=== PATIENT | female | born 1970 | race Caucasian/White ===

== ENCOUNTER → 2018-06-06 | Outpatient (CLI) | payer MEDICARE, MEDICAID ==
--- NOTE | 2018-06-06 14:43 | PFTRPT ---
Height: 63.50 Inches Weight: 216.00 Lbs BSA: 2.01 Diagnosis: J45.40 ATE OF PROCEDURE: 06/06/2018 ORDERED BY: Dr. Susan Nova Spirometry: Study of excellent technical quality. Forced vital capacity normal. FEV1 in proportion. Obstructive index is, therefore, normal. Flow Volume Loop: Expiratory limb of the flow volume loop is normal. No significant bronchodilator response is identified. Lung Volumes: Total lung capacity mildly elevated. Residual volume borderline for air trapping. Diffusing Capacity: Diffusing capacity normal. Hemoglobin: Hemoglobin acceptable at 13.9. Airway Mechanics: Airway resistance and conductance are normal. IMPRESSION: Cannot rule out a degree of air trapping. Please correlate clinically. MTDD
== END ==
LOC: M CARPUL 11:31
PROVIDERS: ATTEND Internal Medicine Pulmonary Disease
DX: J45.40 Moderate persistent asthma, uncomplicated (principal)

== ENCOUNTER → 2018-06-06 | Outpatient (REF) | payer MEDICARE, MEDICAID ==
[2018-06-06 18:22] LABS: BASO # 0.1 10^3/uL (0.0-0.2); BASO % 0.4 % (0.0-1.0); EOS # 0.1 10^3/uL (0.0-0.50); EOS % 0.6 % (0.0-3.0); HEMATOCRIT 42.4 % (36.0-47.0); HEMOGLOBIN 14.2 g/dl (12.0-15.5); LYMPH # 1.8 10^3/uL (1.5-4.5); LYMPH % 15.9 % (24.0-44.0); MEAN CORPUSCULAR HGB CONC 33.5 g/dl (32.0-36.5); MEAN CORPUSCULAR VOLUME 86.7 fl (80.0-96.0); MONO # 0.6 10^3/uL (0.0-0.8); MONO % 4.7 % (0.0-5.0); NEUTROPHILS % 77.8 % (36.0-66.0); PLATELET COUNT, AUTOMATED 363 10^3/uL (150-450); RED BLOOD COUNT 4.89 10^6/uL (4.00-5.40); WHITE BLOOD COUNT 11.6 10^3/uL (4.0-10.0)
[2018-06-06 18:40] LABS: FREE T4 1.07 NG/DL (0.76-1.46); IMMUNOGLOBULIN E 18.3 IU/ML (<100); THYROID STIMULATING HORMONE 1.79 uIU/ML (0.358-3.740)
[2018-06-10 14:49] LABS: D001-IgE D pteronyssinus <0.10 kU/L (Class 0); E001-IgE Cat Epith/Dander < 0.10 kU/L (Class 0); E005-IgE Dog Dander < 0.10 kU/L (Class 0); G002-IgE Bermuda Grass < 0.10 kU/L (Class 0); G008-IgE Kentucky Bluegrass < 0.10 kU/L (Class 0); M001-IgE Penicillium chrysogen < 0.10 kU/L (Class 0); M002 IgE Cladosporium herbaru < 0.10 kU/L (Class 0); M003 IgE Aspergillus fumigatu < 0.10 kU/L (Class 0); M006-IgE Alternaria alternata < 0.10 kU/L (Class 0); T001-IgE Maple/Box Elder < 0.10 kU/L (Class 0); T003-IgE Common Silver Birch < 0.10 kU/L (Class 0); T006-IgE Cedar, Mountain < 0.10 kU/L (Class 0); T007-IgE Oak, White < 0.10 kU/L (Class 0); T008-IgE Elm, American < 0.10 kU/L (Class 0); T015-IgE Ash, White < 0.10 kU/L (Class 0); T041-IgE Hickory, White < 0.10 kU/L (Class 0); T070-IgE White Mulberry < 0.10 kU/L (Class 0); W001-IgE Ragweed, Short < 0.10 kU/L (Class 0); W009-IgE Plantain, English < 0.10 kU/L (Class 0); W014-IgE Pigweed, Rough < 0.10 kU/L (Class 0); W018-IgE Sheep Sorrel < 0.10 kU/L (Class 0)
== END ==
LOC: M LAB REF 17:13
PROVIDERS: ATTEND Internal Medicine Pulmonary Disease
DX: J45.40 Moderate persistent asthma, uncomplicated (principal)

== ENCOUNTER 2021-07-28 11:07 | Day surgery (SDC) | payer MEDICARE, MEDICAID ==
[~2021-07-28] VITALS: Ht 160 cm; Wt 87.1 kg
[~2021-07-28 11:07] MED LIST: ACETAMINOPHEN 1000MG 100ML IV BTL (OFIRMEV) (J0131 PER 10MG) As Ordered ONE; ADDE20CA3 PO; ADV500INH; AMLO1TAB24; ARNU1INH3; ATIV1TAB10; DULO1CAP6; EPINEPHrine 1MG/ML INJ 30ML MD-VIAL As Ordered ONE; FAMO1TAB11; GABA600T4; HYDR-3490; LAMO100T3; LATU80TA2; LEVO137T2; LIDOCAINE 2% 100MG/5ML SDV (FOR ANES.) As Ordered ONE; LIDOCAINE W/EPINEPHRINE 1% 20ML VIAL As Ordered ONE; LR 1,000 ML IV ONE; METHYLENE BLUE 0.5% (5MG/ML) 10 ML AMP (PROVAYBLUE) As Ordered ONE; MIDAZOLAM INJ 2MG/2ML VIAL (J2250 PER 1MG) As Ordered ONE; MONT10TA97; ONDANSETRON 4MG/2ML VIAL As Ordered ONE; PRAV40TA2; PRAZ1CAP; REST0.05; ROCURONIUM BROMIDE 50 MG/5 ML VIAL As Ordered ONE; SPIR12.9; SUGAMMADEX SODIUM 500 MG/5 ML VIAL (BRIDION) As Ordered ONE; TOPI25TA10; VITA1CAP25; dexameTHASONE 4 MG/ML 1ML VIAL (J1100 PER 1MG) As Ordered ONE; fentaNYL 100 MCG/2 ML INJECTION As Ordered ONE; propofoL 200 MG/20 ML VIAL As Ordered ONE
[2021-07-28] MEDS ORDERED: ACETAMINOPH W/CODEINE #3 TAB UD PO PRN (12:50)
[2021-07-28] MEDS ORDERED: LR 1,000 ML IV SCH ×2 (13:00→13:25)
[2021-07-28] MEDS ORDERED: METOCLOPRAMIDE INJ 10MG/2ML VIAL (J2765 PER 1) IV PRN (13:25)
[2021-07-28] MEDS ORDERED: oxyCODONE 5MG TAB PO PRN (13:25)
[2021-07-28] MEDS ORDERED: fentaNYL 100 MCG/2 ML INJECTION IV PRN (13:25)
[2021-07-28] MEDS ORDERED: ONDANSETRON 4MG/2ML VIAL IV PRN (13:25)
[2021-07-28] MEDS ORDERED: HYDROMORPHONE HCL 0.5 MG/ 0.5 ML SYRINGE (J1170 PER 1) IV PRN (13:25)
[2021-07-28] MEDS ORDERED: ALBUTEROL SULFATE 2.5 MG/0.5 ML INH NEB SOLN INH ONE (13:50)
[2021-07-28 15:07] VITALS: BP 125/87
== END 2021-07-28 15:07 | disposition home or self-care (01) ==
LOC: M SDC 11:07
PROVIDERS: ATTEND Otolaryngology
DX: J34.2 Deviated nasal septum (principal); J31.0 Chronic rhinitis; J45.909 Unspecified asthma, uncomplicated; G47.33 Obstructive sleep apnea (adult) (pediatric); E03.9 Hypothyroidism, unspecified; F43.10 Post-traumatic stress disorder, unspecified; F31.81 Bipolar II disorder; F41.0 Panic disorder [episodic paroxysmal anxiety]; L40.50 Arthropathic psoriasis, unspecified; E78.5 Hyperlipidemia, unspecified; M79.7 Fibromyalgia; K22.719 Barrett's esophagus with dysplasia, unspecified; K58.0 Irritable bowel syndrome with diarrhea; F60.9 Personality disorder, unspecified; Z87.891 Personal history of nicotine dependence; Z88.0 Allergy status to penicillin; Z91.030 Bee allergy status; Z79.899 Other long term (current) drug therapy; Z79.51 Long term (current) use of inhaled steroids
CPT/HCPCS: 30130; 30520; 87428; 88300; J0131; J0171; J1100; J2250; J2405; J3010; Q9968

== ENCOUNTER 2022-04-27 06:38 | Day surgery (SDC) | payer MEDICARE, MEDICAID ==
[~2022-04-27] VITALS: Ht 160 cm; Wt 88.0 kg
[~2022-04-27 06:38] MED LIST changes: -ACETAMINOPHEN 1000MG 100ML IV BTL (OFIRMEV) (J0131 PER 10MG) As Ordered ONE; -AMLO1TAB24; +AMLO1TAB24 PO; -ATIV1TAB10; +ATIV1TAB10 PO; +BRIN10TA4 PO; +CLAR10CA3 PO; +D3-5CAP PO; +DICY20TA20 PO; -EPINEPHrine 1MG/ML INJ 30ML MD-VIAL As Ordered ONE; -FAMO1TAB11; +FAMO1TAB11 PO; +FLUT1BLS8 INH; +GABA-282 PO; +LAMO100T3 PO; +LAMO25TA57 PO; +LATU120T PO; -LEVO137T2; +LEVO137T2 PO; -LIDOCAINE 2% 100MG/5ML SDV (FOR ANES.) As Ordered ONE; -LIDOCAINE W/EPINEPHRINE 1% 20ML VIAL As Ordered ONE; -LR 1,000 ML IV ONE; +MAGN400T33 PO; -METHYLENE BLUE 0.5% (5MG/ML) 10 ML AMP (PROVAYBLUE) As Ordered ONE; -MIDAZOLAM INJ 2MG/2ML VIAL (J2250 PER 1MG) As Ordered ONE; -MONT10TA97; +MONT10TA97 PO; +OMEP40CA5 PO; -ONDANSETRON 4MG/2ML VIAL As Ordered ONE; +OXYB10TA23 PO; +POTA10CA33 PO; -PRAV40TA2; +PRAV40TA2 PO; -PRAZ1CAP; +PRAZ1CAP PO; +QUET50TA4 PO; -REST0.05; +REST0.05 OU; -ROCURONIUM BROMIDE 50 MG/5 ML VIAL As Ordered ONE; +STEL45IN SC; -SUGAMMADEX SODIUM 500 MG/5 ML VIAL (BRIDION) As Ordered ONE; -TOPI25TA10; +TOPI25TA10 PO; +VENTAER INH; +VYVA30CA4; -dexameTHASONE 4 MG/ML 1ML VIAL (J1100 PER 1MG) As Ordered ONE; -fentaNYL 100 MCG/2 ML INJECTION As Ordered ONE; -propofoL 200 MG/20 ML VIAL As Ordered ONE
[2022-04-27] MEDS ORDERED: LR 1,000 ML IV SCH ×3 (07:45→11:55)
[2022-04-27] MEDS ORDERED: LIDOCAINE 1% SDV 5ML VIAL SC PRN (07:45)
[2022-04-27] MEDS ORDERED: METHYLENE BLUE 0.5% (5MG/ML) 10 ML AMP (PROVAYBLUE) As Ordered ONE (08:31)
[2022-04-27] MEDS ORDERED: LIDOCAINE W/EPINEPHRINE 1% 20ML VIAL As Ordered ONE (08:31)
[2022-04-27] MEDS ORDERED: EPINEPHrine 1MG/ML INJ 30ML MD-VIAL As Ordered ONE (08:31)
[2022-04-27] MEDS ORDERED: propofoL 200 MG/20 ML VIAL As Ordered ONE (08:39)
[2022-04-27] MEDS ORDERED: MIDAZOLAM INJ 2MG/2ML VIAL (J2250 PER 1MG) As Ordered ONE (08:40)
[2022-04-27] MEDS ORDERED: fentaNYL 100 MCG/2 ML INJECTION As Ordered ONE ×2 (08:40→10:41)
[2022-04-27] MEDS ORDERED: ONDANSETRON 4MG 2ML VIAL As Ordered ONE (08:40)
[2022-04-27] MEDS ORDERED: LIDOCAINE 2% 100MG/5ML SDV (FOR ANES.) As Ordered ONE (08:41)
[2022-04-27] MEDS ORDERED: ROCURONIUM BROMIDE 50MG/5ML VIAL As Ordered ONE (08:44)
[2022-04-27] MEDS ORDERED: BALANCED SALT SOLN OPHTH 15 ML BTL As Ordered ONE (08:59)
[2022-04-27] MEDS ORDERED: SUGAMMADEX SODIUM 500 MG/5 ML VIAL (BRIDION) As Ordered ONE (09:40)
[2022-04-27] MEDS ORDERED: ONDANSETRON 4MG 2ML VIAL IV PRN (10:00)
[2022-04-27] MEDS ORDERED: PERCOCET 5MG/325MG TAB PO PRN (10:00)
[2022-04-27] MEDS: fentaNYL 100 MCG/2 ML INJECTION IV PRN ×2 (10:45→11:03)
[2022-04-27 11:45] VITALS: BP 142/82
[2022-04-27] MEDS ORDERED: ACETAMINOPH W/CODEINE #3 TAB UD PO PRN (11:55)
== END 2022-04-27 12:05 | disposition home or self-care (01) ==
LOC: M SDC 06:38
PROVIDERS: ATTEND Otolaryngology
DX: J34.89 Other specified disorders of nose and nasal sinuses (principal); I10 Essential (primary) hypertension; K21.9 Gastro-esophageal reflux disease without esophagitis; E03.9 Hypothyroidism, unspecified; E78.5 Hyperlipidemia, unspecified; M79.7 Fibromyalgia; L40.9 Psoriasis, unspecified; Z79.899 Other long term (current) drug therapy; Z87.891 Personal history of nicotine dependence; F31.9 Bipolar disorder, unspecified; F41.9 Anxiety disorder, unspecified; F32.A Depression, unspecified; Z88.0 Allergy status to penicillin; Z91.030 Bee allergy status; J30.2 Other seasonal allergic rhinitis
CPT/HCPCS: 30465; J0171; J1100; J2250; J2405; J3010; Q9968